=== PATIENT | female | born 1940 | race Caucasian/White ===

== ENCOUNTER → 2024-03-16 12:23 | Outpatient (REF) | payer MEDICARE, OTHER, SELFPAY | LOC: RCS 12:23 | PROVIDERS: ATTENDING PHYSICIAN Internal Medicine Cardiovascular Disease; FAMILY PHYSICIAN Internal Medicine | DX: I48.3 Typical atrial flutter (principal); I48.92 Unspecified atrial flutter | CPT/HCPCS: 93225; 93226 ==